=== PATIENT | male | born 1995 | race American Indian/Alaskan Native ===

== ENCOUNTER 2017-02-02 08:30 | Emergency (ER) | payer OTHER ==
--- NOTE | 2017-02-02 12:19 | Emergency Department Report ---
ED General Adult HPI - General Chief complaint: Earache Stated complaint: EAR PAIN Source: patient Mode of arrival: Ambulatory Limitations: No Limitations - History of Present Illness Initial comments: 21 y/o nontoxic in appearance M with no significant PMHX presents with left ear pain and nasal congestion for the past few days. Pt states that the pain was the worst this morning about 8/10 in severity. He has not tried any pain medications at this time. Pt denies any chest pain, cough, SOB, fever, chills, nausea, vomiting, neck pain, or headache. Pt denies any changes in appetite and has been eating and drinking as normal. no reported sick contacts. NKDA. -: days(s) (3-4) Radiation: non-radiation Severity scale (0 -10): 8 Quality: constant Consistency: constant Improves with: none Worsens with: none Treatments Prior to Arrival: none - Related Data Previous Rx's Medication Instructions Recorded Last Taken Type Amoxicillin 500 mg PO BID #20 capsule 02/02/17 Unknown Rx Fluticasone [Flonase] 1 spray NS QDAY PRN #1 bottle 02/02/17 Unknown Rx Allergies Allergy/AdvReac Type Severity Reaction Status Date / Time No Known Allergies Allergy Unverified 02/02/17 09:03 ED Review of Systems ROS: Stated complaint: EAR PAIN Other details as noted in HPI Constitutional: denies: chills, fever Eyes: denies: eye pain, eye discharge, vision change ENT: ear pain (left), congestion Respiratory: denies: cough, shortness of breath, wheezing Cardiovascular: denies: chest pain, palpitations Gastrointestinal: denies: abdominal pain, nausea, diarrhea Musculoskeletal: denies: back pain, joint swelling, arthralgia Skin: denies: rash, lesions Neurological: denies: headache, weakness, paresthesias Psychiatric: denies: anxiety, depression ED Past Medical Hx - Past Medical History Previous Medical History?: No - Surgical History Past Surgical History?: No - Social History Smoking Status: Current Every Day Smoker Substance Use Type: Marijuana - Medications Home Medications: Home Medications Medication Instructions Recorded Confirmed Last Taken Type Amoxicillin 500 mg PO BID #20 capsule 02/02/17 Unknown Rx Fluticasone [Flonase] 1 spray NS QDAY PRN #1 bottle 02/02/17 Unknown Rx ED Physical Exam - General Limitations: No Limitations - Head Head exam: Present: atraumatic, normocephalic, normal inspection - Eye Eye exam: Present: normal appearance - ENT ENT exam: Present: other (b/l redness noted of the TM, airway was patent no evidence of tonsil enlargement or abscesses/exudates, mild nasal clear nasal congestion noted in b/l nares) - Neck Neck exam: Present: normal inspection, full ROM, other (no signs of meningitis, able to flex neck to the chest with no difficulty or pain). Absent: lymphadenopathy - Respiratory Respiratory exam: Present: normal lung sounds bilaterally - Cardiovascular Cardiovascular Exam: Present: regular rate, normal rhythm. Absent: systolic murmur, diastolic murmur, rubs, gallop - Neurological Exam Neurological exam: Present: alert, oriented X3 - Psychiatric Psychiatric exam: Present: normal affect, normal mood - Skin Skin exam: Present: warm, dry, intact, normal color. Absent: rash ED Course Vital Signs 02/02/17 02/02/17 09:03 12:20 Temperature 98.4 F Pulse Rate 93 H 86 Respiratory 18 20 Rate Blood Pressure 142/72 Blood Pressure 141/86 [Left] O2 Sat by Pulse 97 96 Oximetry ED Medical Decision Making - Medical Decision Making Pt presented with classic OM symptoms, B/L TM were injected. I have treated him with amoxicillin and advised OTC congestion medications in addition to the Flonase for the nasal congestion. I have provided him with speciality and PCP referrals at this time. Pt was discharged in stable condition, no resp distress , alert and oriented, laughing and talking to me, speaking in full sentences. Critical care attestation.: If time is entered above; I have spent that time in minutes in the direct care of this critically ill patient, excluding procedure time. ED Disposition Clinical Impression: Nasal congestion Otitis media Qualifiers: Otitis media type: unspecified Chronicity: acute Qualified Code(s): H66.90 - Otitis media, unspecified, unspecified ear Disposition: DC-01 TO HOME OR SELFCARE Is pt being admited?: No Does the pt Need Aspirin: No Condition: Stable Instructions: Otitis Media (ED) Additional Instructions: Please complete your full course of antibitoic. You may take OTC mucinex as needed for the cognestion in addition to the flonase. Please follow-up with PCP within 1 week. ENT referral also provided for you today. Please return to the ER immediately if your presenting symptoms progress or worsen. Prescriptions: Amoxicillin 500 mg PO BID #20 capsule Fluticasone [Flonase] 1 spray NS QDAY PRN #1 bottle PRN Reason: congestion Referrals: PRIMARY CARE, [Primary Care Provider] - 3-5 Days BONNIE RAMOS MD [Staff Physician] - 3-[address] [facility] [Outside] - 3-5 Days [facility] [Outside] - 3-5 Days Forms: Work/School Release Form(ED)
[2017-02-02 12:21] VITALS: BP 141/86
== END 2017-02-02 12:50 | disposition home or self-care (01) ==
LOC: ED 08:30
DX: H66.92 Otitis media, unspecified, left ear (principal); F17.200 Nicotine dependence, unspecified, uncomplicated; F12.10 Cannabis abuse, uncomplicated
CPT/HCPCS: 99282

== ENCOUNTER 2020-05-18 12:24 | Emergency (ER) | payer SELFPAY ==
[2020-05-18 13:24] VITALS: BP 135/71
[2020-05-18] MEDS ORDERED: ACETAMINOPHEN 500 MG TAB PO ONE (14:24)
--- NOTE | 2020-05-18 14:25 | Emergency Department Report ---
ED General Adult HPI - General Chief complaint: Upper Respiratory Infection Stated complaint: CHEST/THROAT/BACK PAIN Time Seen by Provider: 05/18/20 13:25 Source: patient Mode of arrival: Ambulatory Limitations: No Limitations - History of Present Illness Initial comments: 24-year-old male patient presents to the emergency department with complaints of fever, cough, body aches, sore throat, and shortness of breath for 5 days. He lives with his mother, who has been exhibiting similar symptoms. He has taken multiple [id number] cough/cold remedies with limited relief. No current steroid or antibiotic use. No recent travel. Denies neck stiffness, rash, mental status changes, syncope, vomiting, diarrhea, abdominal pain. Denies all other complaints at this time. - Related Data Previous Rx's Medication Instructions Recorded Last Taken Type Amoxicillin 500 mg PO BID #20 capsule 02/02/17 Unknown Rx Fluticasone [Flonase] 1 spray NS QDAY PRN #1 bottle 02/02/17 Unknown Rx Allergies Allergy/AdvReac Type Severity Reaction Status Date / Time No Known Allergies Allergy Unverified 02/02/17 09:03 ED Review of Systems ROS: Stated complaint: CHEST/THROAT/BACK PAIN Other details as noted in HPI Other: GENERAL: Positive for fever. ENT: Positive for sore throat. CARDIOVASCULAR: Negative for chest pain, palpitations, lower extremity swelling. PULMONARY: Positive for cough and shortness of breath. GASTROINTESTINAL: Negative for abdominal pain, nausea, vomiting, diarrhea, constipation. MUSCULOSKELETAL: Positive for myalgias. NEUROLOGICAL: Negative for headache, seizure, syncope, paresthesias, weakness. INTEGUMENTARY: Negative for erythema, rash, diaphoresis, laceration, ecchymosis. HEMATOLOGICAL: Negative for hemoptysis, hematemesis, hematochezia, hematuria. PSYCHIATRIC: Negative for hallucinations, suicidal ideation, homicidal ideation, anxiety, depression. ED Past Medical Hx - Past Medical History Previous Medical History?: No - Surgical History Past Surgical History?: No - Social History Smoking Status: Never Smoker Substance Use Type: None - Medications Home Medications: Home Medications Medication Instructions Recorded Confirmed Last Taken Type Amoxicillin 500 mg PO BID #20 capsule 02/02/17 Unknown Rx Fluticasone [Flonase] 1 spray NS QDAY PRN #1 bottle 02/02/17 Unknown Rx ED Physical Exam - General Limitations: No Limitations - Other Other exam information: General: Awake and alert. No acute distress. Head: Atraumatic, normocephalic. Eyes: EOMI. Pupils are equal and round. Normal sclera and conjunctiva. ENT: Oral mucosa is moist. Pharyngeal erythema without tonsillar swelling or exudate. Uvula is midline and nonedematous. No trismus. Speaking normally. Handling secretions without difficulty. Neck: Supple. No lymphadenopathy. Pulmonary: No respiratory distress. Clear to auscultation bilaterally. Cardiac: Tachycardic. Pulses are palpable and equal bilaterally. No lower extremity cyanosis or edema. Skin: Warm and dry. No rashes. Abdomen: Soft, non-tender, non-protuberant. No guarding, rigidity, or rebound. Bowel sounds are normal. No organomegaly or masses noted. Back: Normal alignment. No CVA tenderness. Extremities: Symmetrical. Full range of motion intact. Neurological: Alert and oriented, appropriately interactive, no focal deficits. Psych: Cooperative. Appropriate mood and affect. Speech is evenly metered. Thoughts are logically construed. ED Course Vital Signs 05/18/20 05/18/20 13:21 18:06 Temperature 101.1 F H Pulse Rate 125 H 84 Respiratory 20 Rate Blood Pressure 135/71 O2 Sat by Pulse 93 Oximetry ED Medical Decision Making - Lab Data Result diagrams: 05/18/20 14:46 05/18/20 14:46 - Medical Decision Making Differential diagnosis including but not limited to: strep pharyngitis, viral pharyngitis, epiglottitis, peritonsillar abscess, Samson's angina, mononucleosis, influenza, pneumonia, sepsis, dehydration, viral upper respiratory infection On reevaluation, patient remains stable. Tachycardia resolved following Tylenol. Repeat heart rate 84 bpm. Chest x-ray without acute process. Strep test negative. Confirmatory culture has been sent. Labs within normal limits. No hypoxia, no respiratory distress. History and exam findings are suggestive of viral upper respiratory infection. Patient will be discharged home with instructions for symptomatic relief and close follow-up with primary care provider. Patient expressed understanding and is agreeable to plan of care. Disease transmission precautions discussed. Strict return precautions provided. Repeat exam is unremarkable and benign. History, exam, diagnostic testing, and current condition do not suggest worrisome pathology to warrant further testing, continued ED treatment, admission, or surgical evaluation at this point. Given the low probability of a significant medical illness, it would be more likely to result in harm than benefit to perform further testing at this stage. Discussed findings, presumptive diagnosis, need for follow-up and specific signs/symptoms that should prompt immediate return to the emergency department. Instructions were explained in detail to the patient in addition to giving written discharge information. Patient expressed understanding and was given the opportunity to ask questions, all of which were satisfactorily answered prior to discharge home. Critical care attestation.: If time is entered above; I have spent that time in minutes in the direct care of this critically ill patient, excluding procedure time. ED Disposition Clinical Impression: Viral upper respiratory tract infection with cough Disposition: DC TO HOME OR SELFCARE Is pt being admited?: No Does the pt Need Aspirin: No Condition: Stable Instructions: Viral Respiratory Infection Additional Instructions: Take Tylenol every 4 hours and Motrin every 8 hours as needed for pain and/fever. Use [id number] cough and cold remedies as needed. Honey is an excellent natural cough suppressant. Rest. Drink plenty fluids. Wash hands frequently to prevent disease transmission. Do not share food or drinks with others. Follow-up with your primary care provider this week. Call tomorrow to schedule appointment. Return to the emergency department immediately for new or worsening symptoms. Referrals: PRIMARY MD KOLE [Primary Care Provider] - 3-5 Days MANOJ WIGGINS MD [Staff Physician] - 3-5 Days Time of Disposition: 17:56
--- NOTE | 2020-05-18 15:06 | XRay Report ---
. CHEST 2 VIEWS INDICATION / CLINICAL INFORMATION: fever/cough. COMPARISON: None available. FINDINGS: SUPPORT DEVICES: None. HEART / MEDIASTINUM: No significant abnormality. LUNGS / PLEURA: No significant pulmonary or pleural abnormality. No pneumothorax. ADDITIONAL FINDINGS: No significant additional findings. IMPRESSION: No acute cardiopulmonary abnormality. Signer Name: Regis Cronin MD Signed: 05/18/2020 3:02 PM Workstation Name: [id number]
[2020-05-18 15:34] LABS: Alanine Aminotransferase 32 units/L (7-56); Albumin 4.2 g/dL (3.9-5); BUN/Creatinine Ratio 8; Blood Urea Nitrogen 7 mg/dL (9-20); Calcium 8.4 mg/dL (8.4-10.2); Hemolysis Index 7
[2020-05-18 15:51] LABS: Basophils % (Auto) 0.5 % (0.0-1.8); Eosinophils % (Auto) 0.1 % (0.0-4.3); Hematocrit 44.3 % (35.5-45.6); Hemoglobin 14.4 gm/dl (11.8-15.2); Lymphocytes # (Auto) 1.6 K/mm3 (1.2-5.4); Lymphocytes % (Auto) 34.3 % (13.4-35.0); Mean Corpuscular HGB Conc 33 % (32-34); Mean Corpuscular Volume 84 fl (84-94); Monocytes # (Auto) 0.3 K/mm3 (0.0-0.8); Monocytes % (Auto) 6.7 % (0.0-7.3); Platelet Count 186 K/mm3 (140-440); Red Cell Distribution Width 13.9 % (13.2-15.2)
== END 2020-05-18 18:15 | disposition home or self-care (01) ==
LOC: ED 12:24
DX: J06.9 Acute upper respiratory infection, unspecified (principal); R05 Cough; Z79.899 Other long term (current) drug therapy
CPT/HCPCS: 36415; 71046; 80053; 82140; 85025; 87116; 87430